=== PATIENT | male | born 1960 | race Caucasian/White ===

== ENCOUNTER → 2017-07-02 08:22 | Outpatient (POV) | payer BC, SELFPAY | PROVIDERS: Visit Provider Dentist | DX: Z00.00 Encounter for general adult medical examination without abnormal findings (principal) ==

== ENCOUNTER 2020-10-22 11:40 | Emergency (ER) | payer BC, SELFPAY ==
[2020-10-22 13:40] VITALS: BP 118/96; PULSE 77; RESP 19; TEMP 37; O2SAT 99; BMI 27.8
--- NOTE | 2020-10-22 13:52 | XR_ITS ---
PROCEDURE: XR RIBS LT MIN 3V W CXR1V CLINICAL INDICATION: PAIN COMPARISON: No exams were available for comparison FINDINGS: Mild upper thoracic scoliosis convex left. No acute rib fracture apparent. Frontal view of the chest shows unremarkable cardiovascular structures with clear lungs. IMPRESSION: No acute findings. Dictated by: Roberto Carlos Miranda MD 10/22/2020 14:36 Roberto Carlos Miranda MD in [place] 10/22/2020 14:36
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
[2020-10-22 14:38] VITALS: BP 118/96; PULSE 77; RESP 19; TEMP 37; O2SAT 99
== END 2020-10-22 14:40 | disposition home or self-care (01) ==
PROVIDERS: Emergency Provider Nurse Practitioner
DX: S20.212A Contusion of left front wall of thorax, initial encounter (principal); X50.3XXA Overexertion from repetitive movements, initial encounter
CPT/HCPCS: 71101; 99202; G0463

== ENCOUNTER → 2021-04-11 10:14 | Outpatient (CLI) | payer BC, SELFPAY ==
[2021-04-12 06:36] LABS: Covid-19 Nasal PCR Sendout Lex NOT DETECTED
== END ==
PROVIDERS: Visit Provider Nurse Practitioner
DX: Z20.822 Contact with and (suspected) exposure to COVID-19 (principal)
CPT/HCPCS: C9803; U0004; U0005

== ENCOUNTER → 2021-04-12 14:45 | Outpatient (CLI) | payer BC, SELFPAY | PROVIDERS: Visit Provider Nurse Practitioner | DX: Z20.822 Contact with and (suspected) exposure to COVID-19 (principal) | CPT/HCPCS: C9803; U0003; U0005 ==